=== PATIENT | female | born 1990 | race African-American/Black ===

== ENCOUNTER 2019-01-03 02:35 | Emergency (ER) | payer OTHER ==
[2019-01-03 03:18] LABS: Absolute Lymphocytes (CBC) 2.8 K/uL (0.7-4.9); Absolute Monocytes 0.5 K/uL (0.1-1.3); Absolute Neutrophil 5.3 K/uL (1.8-8.0); Basophils % 0.6 % (0-1.3); Eosinophils % 3.3 % (0-4.4); Hematocrit 36.6 % (36.0-45.0); Lymphocytes % 31.3 % (15.3-44.8); MPV 7.9 fL (7.6-11.3); Monocytes % 5.5 % (3.3-12.3); RBC Red Blood Cell Count 4.19 M/uL (3.86-4.86)
[2019-01-03] MEDS ORDERED: NA CHLORIDE 0.9% 1,000 ML ONE (03:29)
[2019-01-03 03:31] LABS: Urine Blood 3+ (NEG); Urine Glucose NEGATIVE (NEG); Urine Protein 1+ (NEG); Urine Specific Gravity >1.030 (1.005-1.030); Urine pH 5.5 (5.0-7.0)
[2019-01-03 03:47] LABS: BUN Blood Urea Nitrogen 14 mg/dL (7-18); Bicarbonate 26 mmol/L (21-32); Glucose Level 84 mg/dL (74-106); Potassium 3.7 mmol/L (3.5-5.1); Sodium Level 143 mmol/L (136-145)
[2019-01-03] MEDS ORDERED: MORPHINE 2 MG/ML SYR ONE ×2 (03:49→04:45)
[2019-01-03 03:50] LABS: HCG, Quantitative 1237 mIU/mL (1-3)
[2019-01-03] MEDS ORDERED: ONDANSETRON 4 MG/2 ML VIAL ONE (03:50)
--- NOTE | 2019-01-03 04:47 | ER ---
Nurse's Notes [facility] Name: Dinora Duckworth Age: 28 yrs Sex: Female : 1990 Arrival Date: 01/03/2019 Time: 02:36 Bed 14 Private MD: Diagnosis: Threatened Presentation: 01/03 02:45 Presenting complaint: Patient states: "lower abdominal pain with mild vaginal bleeding cc3 since 2230H last night". Transition of care: patient was not received from another setting of care. Onset of symptoms was January 02, 2019. Risk Assessment: Do you want to hurt yourself or someone else? Patient reports no desire to harm self or others. Initial Sepsis Screen: Does the patient meet any 2 criteria? No. Patient's initial sepsis screen is negative. Does the patient have a suspected source of infection? No. Patient's initial sepsis screen is negative. Care prior to arrival: None. 02:45 Method Of Arrival: Ambulatory cc3 02:45 Acuity: LONI 3 cc3 Triage Assessment: 02:45 General: Appears in no apparent distress. uncomfortable, Behavior is calm, cooperative, cc3 appropriate for age. Pain: Complains of pain in lower abdomen. EENT: No signs and/or symptoms were reported regarding the EENT system. Neuro: Level of Consciousness is awake, alert, obeys commands, Oriented to person, place, time, situation, Appropriate for age. Cardiovascular: Denies chest pain, Patient's skin is warm and dry. Respiratory: Airway is patent Respiratory effort is even, unlabored, Respiratory pattern is regular, symmetrical. GI: Abdomen is round. : Reports vaginal bleeding that is mild. Derm: Skin is intact, is healthy with good turgor, Skin is pink, warm \\T\\ dry. normal. Musculoskeletal: Circulation, motion, and sensation intact. Range of motion: intact in all extremities. 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 - Social history:: Smoking status: Patient/guardian denies using tobacco, never smoked. - Ebola Screening: : No symptoms or risks identified at this time. - Family history:: not pertinent. Screenin:45 Abuse screen: Denies threats or abuse. Denies injuries from another. Nutritional cc3 screening: No deficits noted. Tuberculosis screening: No symptoms or risk factors identified. Fall Risk Ambulatory Aid- None/Bed Rest/Nurse Assist (0 pts). Gait- Normal/Bed Rest/Wheelchair (0 pts) Mental Status- Oriented to own ability (0 pts). Assessment: 02:45 General: see triage assessment. cc3 03:18 Reassessment: Patient appears in no apparent distress at this time. Patient and/or cc3 family updated on plan of care and expected duration. Pain level reassessed. Patient is alert, oriented x 3, equal unlabored respirations, skin warm/dry/pink. 04:20 Reassessment: Patient appears in no apparent distress at this time. Patient and/or cc3 family updated on plan of care and expected duration. Pain level reassessed. Patient is alert, oriented x 3, equal unlabored respirations, skin warm/dry/pink. Ultrasound done bedside. 05:00 Reassessment: Patient appears in no apparent distress at this time. Patient and/or cc3 family updated on plan of care and expected duration. Pain level reassessed. Patient is alert, oriented x 3, equal unlabored respirations, skin warm/dry/pink. Dr. Velez discharged the patient home with prescription given. IV cannula removed and patient left ER vitally stable and ambulatory with her family. Patient denies pain at this time. Patient states feeling better. Patient states symptoms have improved. Vital Signs: 02:45 BP 128 / 88; Pulse 89; Resp 17 S; Temp 98(TE); Pulse Ox 100% on R/A; Weight 55.79 kg cc3 (R); Height 4 ft. 11 in. (149.86 cm) (R); 03:18 BP 125 / 87; Pulse 69; Resp 16 S; Pulse Ox 100% on R/A; cc3 04:30 BP 119 / 82; Pulse 66; Resp 17 S; Pulse Ox 100% on R/A; Pain 4/10; cc3 05:00 BP 121 / 79; Pulse 65; Resp 16 S; Pulse Ox 100% on R/A; cc3 02:45 Body Mass Index 24.84 (55.79 kg, 149.86 cm) cc3 ED Course: 02:36 Patient arrived in ED. ds1 02:43 Tonia Maria is Primary Nurse. cc3 02:45 Arm band placed on right wrist. Patient notified of wait time. cc3 02:45 Patient has correct armband on for positive identification. Placed in gown. Bed in low cc3 position. Side rails up X 1. Pulse ox on. NIBP on. 02:47 Shashank Velez MD is Attending Physician. kevin 03:07 Triage completed. cc3 03:14 Inserted saline lock: 20 gauge in right antecubital area, using aseptic technique. mt Blood collected. 04:26 Ultrasound completed. Patient tolerated well. Notified ED Physician alisha. sg3 04:27 US Transvaginal Ob In Process Unspecified. EDMS 04:46 Blu Camacho MD is Referral Physician. [facility] 05:00 No provider procedures requiring assistance completed. IV discontinued, intact, cc3 bleeding controlled, No redness/swelling at site. Pressure dressing applied. Administered Medications: 03:15 Drug: NS 0.9% 1000 ml Route: IV; Rate: 1 bolus; Site: right antecubital; cc3 04:15 Follow up: Response: No adverse reaction; IV Status: Completed infusion; IV Intake: cc3 1000ml 03:40 Drug: morphine 2 mg Route: IVP; Site: right antecubital; cc3 04:00 Follow up: Response: No adverse reaction; Pain is decreased cc3 03:45 Drug: Zofran 4 mg Route: IVP; Site: right antecubital; cc3 04:00 Follow up: Response: No adverse reaction; Nausea is decreased cc3 04:30 Drug: morphine 2 mg Route: IVP; Site: right antecubital; cc3 05:00 Follow up: Response: No adverse reaction; Pain is decreased cc3 Intake: 04:15 IV: 1000ml; Total: 1000ml. cc3 Outcome: 04:46 Discharge ordered by . [facility] 05:00 Discharged to home ambulatory, with family. cc3 05:00 Condition: stable 05:00 Discharge instructions given to patient, Instructed on discharge instructions, follow up and referral plans. medication usage, Demonstrated understanding of instructions, follow-up care, medications, Prescriptions given X 1. 05:12 Patient left the ED. cc3 Signatures: Dispatcher [employer] EDShashank Gerardo MD MD cha [place], [place] ds1 Kair Lee mt, Aurea gil3 Tonia Maria cc3 Corrections: (The following items were deleted from the chart) 04:36 04:30 Pulse 66bpm; Resp 17bpm; Spontaneous; Pulse Ox 100% RA; Pain 10/28; cc3 cc3
--- NOTE | 2019-01-03 04:47 | EDPHYS ---
Physician Documentation [facility] Name: Dinora Duckworth Age: 28 yrs Sex: Female : 1990 Arrival Date: 01/03/2019 Time: 02:36 Bed 14 Private MD: ASHOK Physician Shashank Velez HPI: 01/03 03:14 This 28 yrs old Black Female presents to ER via Ambulatory with complaints of Vaginal kevin Bleeding, Vaginal Pain, Preg. 03:14 The patient presents with vaginal bleeding that is light. Onset: The symptoms/episode kevin began/occurred yesterday. Modifying factors: The symptoms are alleviated by nothing, the symptoms are aggravated by nothing. Associated signs and symptoms: The patient has no apparent associated signs or symptoms. Severity of symptoms: At their worst the symptoms were mild. The patient is sexually active, reportedly has a single partner. The patient has not experienced similar symptoms in the past. 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 - Social history:: Smoking status: Patient/guardian denies using tobacco, never smoked. - Ebola Screening: : No symptoms or risks identified at this time. - Family history:: not pertinent. ROS: 03:14 Constitutional: Negative for fever, chills, and weight loss, Eyes: Negative for injury, kevin pain, redness, and discharge, ENT: Negative for injury, pain, and discharge, Neck: Negative for injury, pain, and swelling, Cardiovascular: Negative for chest pain, palpitations, and edema, Respiratory: Negative for shortness of breath, cough, wheezing, and pleuritic chest pain, Back: Negative for injury and pain, MS/Extremity: Negative for injury and deformity, Skin: Negative for injury, rash, and discoloration, Neuro: Negative for headache, weakness, numbness, tingling, and seizure, Psych: Negative for depression, anxiety, suicide ideation, homicidal ideation, and hallucinations, Allergy/Immunology: Negative for hives, rash, and allergies, Endocrine: Negative for neck swelling, polydipsia, polyuria, polyphagia, and marked weight changes, Hematologic/Lymphatic: Negative for swollen nodes, abnormal bleeding, and unusual bruising. 03:14 Abdomen/GI: Positive for abdominal pain, of the suprapubic area, right lower quadrant and left lower quadrant. 03:14 : Positive for vaginal bleeding. Exam: 03:14 Constitutional: This is a well developed, well nourished patient who is awake, alert, kevin and in no acute distress. Head/Face: Normocephalic, atraumatic. Eyes: Pupils equal round and reactive to light, extra-ocular motions intact. Lids and lashes normal. Conjunctiva and sclera are non-icteric and not injected. Cornea within normal limits. Periorbital areas with no swelling, redness, or edema. ENT: Nares patent. No nasal discharge, no septal abnormalities noted. Tympanic membranes are normal and external auditory canals are clear. Oropharynx with no redness, swelling, or masses, exudates, or evidence of obstruction, uvula midline. Mucous membranes moist. Neck: Trachea midline, no thyromegaly or masses palpated, and no cervical lymphadenopathy. Supple, full range of motion without nuchal rigidity, or vertebral point tenderness. No Meningismus. Chest/axilla: Normal chest wall appearance and motion. Nontender with no deformity. No lesions are appreciated. Cardiovascular: Regular rate and rhythm with a normal S1 and S2. No gallops, murmurs, or rubs. Normal PMI, no JVD. No pulse deficits. Respiratory: Lungs have equal breath sounds bilaterally, clear to auscultation and percussion. No rales, rhonchi or wheezes noted. No increased work of breathing, no retractions or nasal flaring. Back: No spinal tenderness. No costovertebral tenderness. Full range of motion. Skin: Warm, dry with normal turgor. Normal color with no rashes, no lesions, and no evidence of cellulitis. MS/ Extremity: Pulses equal, no cyanosis. Neurovascular intact. Full, normal range of motion. Neuro: Awake and alert, GCS 15, oriented to person, place, time, and situation. Cranial nerves II-XII grossly intact. Motor strength 5/5 in all extremities. Sensory grossly intact. Cerebellar exam normal. Normal gait. Psych: Awake, alert, with orientation to person, place and time. Behavior, mood, and affect are within normal limits. 03:14 Abdomen/GI: Inspection: abdomen appears normal, Bowel sounds: normal, Palpation: mild abdominal tenderness, in the suprapubic area, Liver: no appreciated palpable abnormalities, Hernia: not appreciated. Vital Signs: 02:45 BP 128 / 88; Pulse 89; Resp 17 S; Temp 98(TE); Pulse Ox 100% on R/A; Weight 55.79 kg cc3 (R); Height 4 ft. 11 in. (149.86 cm) (R); 03:18 BP 125 / 87; Pulse 69; Resp 16 S; Pulse Ox 100% on R/A; cc3 04:30 BP 119 / 82; Pulse 66; Resp 17 S; Pulse Ox 100% on R/A; Pain 4/10; cc3 05:00 BP 121 / 79; Pulse 65; Resp 16 S; Pulse Ox 100% on R/A; cc3 02:45 Body Mass Index 24.84 (55.79 kg, 149.86 cm) cc3 MDM: 02:47 Patient medically screened. [facility] 03:16 Data reviewed: vital signs, nurses notes, lab test result(s), radiologic studies, kevin ultrasound. 01/03 02:59 Order name: Quantitative Hcg; Complete Time: 04:46 [facility] 01/03 02:59 Order name: Abo/rh Typing; Complete Time: 04:46 [facility] 01/03 02:59 Order name: Basic Metabolic Panel; Complete Time: 04:46 [facility] 01/03 02:59 Order name: CBC with Diff; Complete Time: 03:26 [facility] 01/03 03:13 Order name: Urine Dipstick--Ancillary (enter results); Complete Time: 04:46 [facility] 01/03 03:13 Order name: Urine --Ancillary (enter results); Complete Time: 04:46 [facility] 01/03 02:59 Order name: Urine Test (obtain specimen); Complete Time: 03:06 [facility] 01/03 02:59 Order name: IV Saline Lock; Complete Time: 03:18 [facility] 01/03 02:59 Order name: Labs collected and sent; Complete Time: 03:18 [facility] 01/03 02:59 Order name: US Transvaginal Ob [facility] 01/03 02:59 Order name: NPO; Complete Time: 03:18 [facility] 01/03 02:59 Order name: Urine Dipstick-Ancillary (obtain specimen); Complete Time: 03:06 [facility] Administered Medications: 03:15 Drug: NS 0.9% 1000 ml Route: IV; Rate: 1 bolus; Site: right antecubital; cc3 04:15 Follow up: Response: No adverse reaction; IV Status: Completed infusion; IV Intake: cc3 1000ml 03:40 Drug: morphine 2 mg Route: IVP; Site: right antecubital; cc3 04:00 Follow up: Response: No adverse reaction; Pain is decreased cc3 03:45 Drug: Zofran 4 mg Route: IVP; Site: right antecubital; cc3 04:00 Follow up: Response: No adverse reaction; Nausea is decreased cc3 04:30 Drug: morphine 2 mg Route: IVP; Site: right antecubital; cc3 05:00 Follow up: Response: No adverse reaction; Pain is decreased cc3 Disposition: 01/03/19 04:46 Discharged to Home. Impression: Threatened . - Condition is Stable. - Discharge Instructions: Threatened Miscarriage, Vaginal Bleeding During , First Trimester, First Trimester of , [id number], First Trimester of , Threatened Miscarriage, [id number], Pelvic Rest. - Prescriptions for Vitamin 27- 0.8 mg Oral Tablet - take 1 tablet by ORAL route once daily; 30 tablet. - Medication Reconciliation Form, Thank You Letter, Antibiotic Education, Prescription Opioid Use form. - Follow up: Private Physician; When: 2 - 3 days; Reason: Recheck today's complaints, Continuance of care, Re-evaluation by your physician. Follow up: Blu Camacho; When: 2 - 3 days; Reason: Recheck today's complaints, Re-evaluation by your physician. - Problem is new. - Symptoms have improved. Signatures: Dispatcher [employer] Shashank Cespedes MD MD cha Cordel, Charlene cc3 Corrections: (The following items were deleted from the chart) 05:12 04:46 01/03/2019 04:46 Discharged to Home. Impression: Threatened . Condition cc3 is Stable. Discharge Instructions: Threatened Miscarriage, Vaginal Bleeding During , First Trimester, First Trimester of , Vsnc-xl-Uswe, First Trimester of , Threatened Miscarriage, [id number]-[id number]-Tede, Pelvic Rest. Prescriptions for Vitamin 27-0.8 mg Oral Tablet - take 1 tablet by ORAL route once daily; 30 tablet. and Forms are Medication Reconciliation Form, Thank You Letter, Antibiotic Education, Prescription Opioid Use. Follow up: Private Physician; When: 2 - 3 days; Reason: Recheck today's complaints, Continuance of care, Re-evaluation by your physician. Follow up: Blu Camacho; When: 2 - 3 days; Reason: Recheck today's complaints, Re-evaluation by your physician. Problem is new. Symptoms have improved. kevin
--- NOTE | 2019-01-03 08:56 | RAD REPORT ---
EXAM DESCRIPTION: US - Transvaginal OB - 01/03/2019 4:25 am CLINICAL HISTORY: with abdominal pain and vaginal bleeding COMPARISON: None. FINDINGS: The uterus 10 x 5 x 5 centimeters. The endometrial stripe measures 6 millimeters. A gesta tional sac is not seen. Ovaries are normal in size and echotexture.. An adnexal mass is not noted. No significant free fluid IMPRESSION: Nonvisualization of a gestational sac within the endometrium These findings could represent an early intrauterine in which the gestational sac is not se en. and even an ectopic can also result in this appearance. This all should be cor related clinically and with serial beta HCG levels. Followup endovaginal sonogram in 1 week recommend ed
== END 2019-01-03 05:12 | disposition home or self-care (01) ==
LOC: ER 02:35
DX: O20.0 Threatened abortion (principal); Z3A.01 Less than 8 weeks gestation of pregnancy
CPT/HCPCS: 36415; 76817; 80048; 81003; 81025; 84702; 85025; 86900; 86901; 96361; 96374; 96375; 99284; J2270; J2405; J7030

== ENCOUNTER 2019-01-30 20:09 | Emergency (ER) | payer OTHER ==
--- OUTSIDE RECORDS SUMMARY | 2019-01-30 20:12 | XMS REPORT ---
:1990 [facility] [address] [place] [address] [address] [place] [address] Care Team Providers Name Role Phone Unavailable Unavailable Unavailable Problems This patient has no known problems. Allergies, Adverse Reactions, Alerts This patient has no known allergies or adverse reactions. Medications This patient has no known medications.
--- NOTE | 2019-01-30 20:45 | EDPHYS ---
Physician Documentation [facility] Name: Dinora Duckworth Age: 28 yrs Sex: Female : 1990 Arrival Date: 01/30/2019 Time: 20:14 Bed 12 Private MD: None, None ED Physician Bebeto Benavides HPI: 01/30 20:40 This 28 yrs old Black Female presents to ER via Ambulatory with complaints of Toothache.cp 20:40 The patient presents with broken tooth/teeth, pain, swelling. The problem is located in cp the right upper tooth. Onset: The symptoms/episode began/occurred 4 week(s) ago, and became worse 2 week(s) ago. 20:40 Duration: The symptoms are intermittent. Modifying factors: the symptoms are aggravated cp by chewing. Associated signs and symptoms: Pertinent negatives: fever, inability to eat, vomiting, facial swelling. Severity of symptoms: in the emergency department the symptoms are unchanged, despite home interventions. 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 - Social history:: Smoking status: Patient/guardian denies using tobacco. - Ebola Screening: : No symptoms or risks identified at this time. ROS: 20:40 Constitutional: Negative for body aches, chills, fever, poor PO intake. cp 20:40 ENT: Positive for dental pain, Negative for ear pain, sore throat, difficulty swallowing, difficulty handling secretions. 20:40 All other systems are negative. Exam: 20:40 Head/Face: Normocephalic, atraumatic. cp 20:40 Constitutional: The patient appears in no acute distress, alert, awake, comfortable, non-toxic, well developed, well nourished. 20:40 Eyes: Periorbital structures: appear normal, Conjunctiva: normal, no exudate, no injection, Sclera: no appreciated abnormality, Lids and lashes: appear normal, bilaterally. 20:40 ENT: External ear(s): are unremarkable, Nose: is normal, Mouth: Lips: moist, Oral mucosa: pink and intact, moist, Gums: swollen, on the right upper outer gumline, Tongue: is normal, abscess, is not appreciated, Dental exam: abscess, is not appreciated, dental caries, that is mild, diffusely, fractured teeth are noted, specifically the upper right second bicuspid (#4), pain, that is mild, specifically in the upper right second bicuspid (#4), Voice: is normal. 20:40 Neck: ROM/movement: is normal, is supple, without pain, no range of motions limitations, no nuchal rigidity. 20:40 Chest/axilla: Inspection: normal. cp 20:40 Cardiovascular: Rate: normal. cp 20:40 Respiratory: the patient does not display signs of respiratory distress, Respirations: normal, no use of accessory muscles, no retractions, no splinting, no tachypnea. 20:40 Skin: no rash present. Vital Signs: 20:18 BP 126 / 74; Pulse 77; Resp 16; Temp 97.5; Pulse Ox 98% on R/A; Weight 55.79 kg; Height la1 4 ft. 11 in. (149.86 cm); 20:18 Body Mass Index 24.84 (55.79 kg, 149.86 cm) la1 MDM: 20:35 Patient medically screened. cp 20:45 Data reviewed: vital signs, nurses notes, and as a result, I will discharge patient. cp 20:45 Differential diagnosis: dental caries, dental abscess, pericoronitis. Counseling: I had cp a detailed discussion with the patient and/or guardian regarding: the historical points, exam findings, and any diagnostic results supporting the discharge/admit diagnosis, the need for outpatient follow up, for definitive care, a dentist, to return to the emergency department if symptoms worsen or persist or if there are any questions or concerns that arise at home. Administered Medications: No medications were administered Disposition: 21:00 Chart complete. cp 01/31 01:32 Co-signature as Attending Physician, Bebeto Benavides MD. Disposition: 01/30/19 20:45 Discharged to Home. Impression: Jaw pain - right upper. - Condition is Stable. - Discharge Instructions: Dental Pain. - Prescriptions for Amoxicillin 875 mg Oral Tablet - take 1 tablet by ORAL route every 12 hours for 10 days; 20 tablet. Ibuprofen 800 mg Oral Tablet - take 1 tablet by ORAL route every 8 hours As needed take with food; 30 tablet. - Medication Reconciliation Form, Thank You Letter, Antibiotic Education, Prescription Opioid Use form. - Follow up: Private Physician; When: 2 - 3 days; Reason: Recheck today's complaints. - Problem is an ongoing problem. - Symptoms are unchanged. Signatures: Elaine Baker RN RN aa1 Jose Juan Stroud RN RN la1 Shashank Robison PA PA cp Starr, Gregory, MD MD gs Corrections: (The following items were deleted from the chart) 01/30 20:51 20:45 01/30/2019 20:45 Discharged to Home. Impression: Jaw pain - right upper. aa1 Condition is Stable. Forms are Medication Reconciliation Form, Thank You Letter, Antibiotic Education, Prescription Opioid Use. Follow up: Private Physician; When: 2 - 3 days; Reason: Recheck today's complaints. Problem is an ongoing problem. Symptoms are unchanged. cp
--- NOTE | 2019-01-30 20:45 | ER ---
Nurse's Notes [facility] Name: Dinora Duckworth Age: 28 yrs Sex: Female : 1990 Arrival Date: 01/30/2019 Time: 20:14 Bed 12 Private MD: None, None Diagnosis: Jaw pain-right upper Presentation: 01/30 20:16 Presenting complaint: Patient states: Right upper dental pain for about 2 weeks, I went la1 to the dentist about that time and they said I couldn't get anything done till the infection went down but they never gave me any anitbiotics so I figured I would come here to see if I could get some. Transition of care: patient was not received from another setting of care. Onset of symptoms was January 30, 2019. Risk Assessment: Do you want to hurt yourself or someone else? Patient reports no desire to harm self or others. Initial Sepsis Screen: Does the patient meet any 2 criteria? No. Patient's initial sepsis screen is negative. Does the patient have a suspected source of infection? No. Patient's initial sepsis screen is negative. Care prior to arrival: None. 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 - Social history:: Smoking status: Patient/guardian denies using tobacco. - Ebola Screening: : No symptoms or risks identified at this time. Screenin:19 Abuse screen: Denies threats or abuse. Nutritional screening: No deficits noted. la1 Tuberculosis screening: No symptoms or risk factors identified. Fall Risk None identified. Assessment: 20:19 General: Appears in no apparent distress. Behavior is calm, cooperative. Pain: la1 Complains of pain in gums. Neuro: Level of Consciousness is awake, alert, obeys commands, Oriented to person, place, time, situation. Cardiovascular: Capillary refill < 3 seconds Patient's skin is warm and dry. EENT: Poor dentition noted. 20:50 Reassessment: Patient appears in no apparent distress at this time. Patient is alert, aa1 oriented x 3, equal unlabored respirations, skin warm/dry/pink. Discussed d/c \T\ f/u instructions to pt; denies questions or concerns at this time. Amb to lobby with steady gait. Vital Signs: 20:18 BP 126 / 74; Pulse 77; Resp 16; Temp 97.5; Pulse Ox 98% on R/A; Weight 55.79 kg; Height la1 4 ft. 11 in. (149.86 cm); 20:18 Body Mass Index 24.84 (55.79 kg, 149.86 cm) la1 ED Course: 20:14 Patient arrived in ED. mr 20:14 None, None is Private Physician. mr 20:18 Triage completed. la1 20:19 Arm band placed on left wrist. la1 20:19 Call light in reach. la1 20:21 Shashank Robison PA is PHCP. cp 20:21 Bebeto Benavides MD is Attending Physician. cp 20:50 Elaine Baker, RN is Primary Nurse. aa1 20:50 No provider procedures requiring assistance completed. Patient did not have IV access aa1 during this emergency room visit. Administered Medications: No medications were administered Outcome: 20:45 Discharge ordered by . cp 20:50 Discharged to home ambulatory. aa1 20:50 Condition: good 20:50 Discharge instructions given to patient, Instructed on discharge instructions, follow up and referral plans. medication usage, Demonstrated understanding of instructions, follow-up care, medications, Prescriptions given X 2. 20:51 Patient left the ED. aa1 Signatures: Elaine Baker RN RN aa1 Odessa Bhagat Jose Juan Figueroa RN RN la1 Shashank Robison PA PA cp
== END 2019-01-30 20:51 | disposition home or self-care (01) ==
LOC: ER 20:09
DX: R68.84 Jaw pain (principal)
CPT/HCPCS: 99282

== ENCOUNTER 2019-03-07 18:37 | Emergency (ER) | payer OTHER ==
--- OUTSIDE RECORDS SUMMARY | 2019-03-07 18:39 | XMS REPORT ---
:1990 [facility] [address] [place] [address] [address] [place] [address] Care Team Providers Name Role Phone Unavailable Unavailable Unavailable Problems This patient has no known problems. Allergies, Adverse Reactions, Alerts This patient has no known allergies or adverse reactions. Medications This patient has no known medications.
--- NOTE | 2019-03-07 18:58 | EDPHYS ---
Physician Documentation [facility] Name: Dinora Duckworth Age: 28 yrs Sex: Female : 1990 Arrival Date: 03/07/2019 Time: 18:39 Bed 17 Private MD: ED Physician Bebeto Benavides HPI: 03/07 18:56 This 28 yrs old Black Female presents to ER via Ambulatory with complaints of Skin pm1 Problem. 18:56 The patient's rash thought to be caused by knots under the skin in the right groin area pm1 that come and go for the past two months. Associated signs and symptoms: Pertinent negatives: None. fever, nausea, vomiting, abdominal pain, right leg pain, urinary symptoms. Treatment given at home: None. The patient has not recently seen a physician. 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 - Social history:: Smoking status: . - Ebola Screening: : Patient denies travel to an Ebola-affected area in the 21 days before illness onset. ROS: 18:56 Constitutional: Negative for fever, chills, and weight loss, Eyes: Negative for injury, pm1 pain, redness, and discharge, ENT: Negative for injury, pain, and discharge, Neck: Negative for injury, pain, and swelling, Cardiovascular: Negative for chest pain, palpitations, and edema, Respiratory: Negative for shortness of breath, cough, wheezing, and pleuritic chest pain, Abdomen/GI: Negative for abdominal pain, nausea, vomiting, diarrhea, and constipation, Back: Negative for injury and pain, MS/Extremity: Negative for injury and deformity. 18:56 Neuro: Negative for headache, weakness, numbness, tingling, and seizure. 18:56 Skin: Positive for of the right groin area, knots/bumps. Exam: 18:56 Constitutional: This is a well developed, well nourished patient who is awake, alert, pm1 and in no acute distress. Head/Face: Normocephalic, atraumatic. Neck: Trachea midline, no thyromegaly or masses palpated, and no cervical lymphadenopathy. Supple, full range of motion without nuchal rigidity, or vertebral point tenderness. No Meningismus. Chest/axilla: Normal chest wall appearance and motion. Nontender with no deformity. No lesions are appreciated. Cardiovascular: Regular rate and rhythm with a normal S1 and S2. No gallops, murmurs, or rubs. Normal PMI, no JVD. No pulse deficits. Respiratory: Lungs have equal breath sounds bilaterally, clear to auscultation and percussion. No rales, rhonchi or wheezes noted. No increased work of breathing, no retractions or nasal flaring. Abdomen/GI: Soft, non-tender, with normal bowel sounds. No distension or tympany. No guarding or rebound. No evidence of tenderness throughout. Back: No spinal tenderness. No costovertebral tenderness. Full range of motion. Skin: Warm, dry with normal turgor. Normal color with no rashes, no lesions, and no evidence of cellulitis. MS/ Extremity: Pulses equal, no cyanosis. Neurovascular intact. Full, normal range of motion. 18:56 Abdomen/GI: Palpation: right groin area are two small mobile lymph nodes, turnaround planner: Rachael COBOS. 18:56 Neuro: Orientation: is normal, Motor: is normal, moves all fours, Sensation: is normal, no obvious gross deficits. Vital Signs: 18:42 BP 121 / 80; Pulse 73; Resp 16; Temp 98.5(TE); Pulse Ox 100% on R/A; Weight 55.79 kg tw2 (R); Height 4 ft. 11 in. (149.86 cm); Pain 5/10; 18:42 Body Mass Index 24.84 (55.79 kg, 149.86 cm) tw2 MDM: 18:55 Patient medically screened. pm1 18:56 Data reviewed: vital signs. Data interpreted: Pulse oximetry: on room air is 100 %. pm1 Interpretation: normal. Counseling: I had a detailed discussion with the patient and/or guardian regarding: the historical points, exam findings, and any diagnostic results supporting the discharge/admit diagnosis, the need for outpatient follow up, a family practitioner, to return to the emergency department if symptoms worsen or persist or if there are any questions or concerns that arise at home. Administered Medications: No medications were administered Disposition: 03/07/19 18:57 Discharged to Home. Impression: Nonspecific lymphadenitis. - Condition is Stable. - Discharge Instructions: Lymphadenopathy. - Prescriptions for Keflex 500 mg Oral Capsule - take 1 capsule by ORAL route every 6 hours for 10 days; 40 capsule. - Medication Reconciliation Form, Thank You Letter, Antibiotic Education, Prescription Opioid Use form. - Follow up: Emergency Department; When: As needed; Reason: Worsening of condition. Follow up: Private Physician; When: 2 - 3 days; Reason: Recheck today's complaints, Continuance of care, Re-evaluation by your physician. - Problem is new. - Symptoms have improved. Addendum: 03/09/2019 15:39 Co-signature as Attending Physician, Bebeto Benavides MD. g s Signatures: Tim Petersen, MILKING MACHINE MECHANIC MILKING MACHINE MECHANIC pm1 Chloe Paniagua RN RN tw2 Bebeto Benavides MD MD gs AcRachael tavares RN RN ca1 Corrections: (The following items were deleted from the chart) 03/07 19:05 18:57 03/07/2019 18:57 Discharged to Home. Impression: Nonspecific lymphadenitis. ca1 Condition is Stable. Forms are Medication Reconciliation Form, Thank You Letter, Antibiotic Education, Prescription Opioid Use. Follow up: Emergency Department; When: As needed; Reason: Worsening of condition. Follow up: Private Physician; When: 2 - 3 days; Reason: Recheck today's complaints, Continuance of care, Re-evaluation by your physician. Problem is new. Symptoms have improved. pm1
--- NOTE | 2019-03-07 18:58 | ER ---
Nurse's Notes [facility] Name: Dinora Duckworth Age: 28 yrs Sex: Female : 1990 Arrival Date: 03/07/2019 Time: 18:39 Bed 17 Private MD: Diagnosis: Nonspecific lymphadenitis Presentation: 03/07 18:40 Presenting complaint: Patient states: i have knots under my skin in the crease where my tw2 panties are, there are two or three of them, they come and go away. Transition of care: patient was not received from another setting of care. Onset of symptoms was March 07, 2019. Risk Assessment: Do you want to hurt yourself or someone else? Patient reports no desire to harm self or others. Initial Sepsis Screen: Does the patient meet any 2 criteria? No. Patient's initial sepsis screen is negative. Does the patient have a suspected source of infection? No. Patient's initial sepsis screen is negative. Care prior to arrival: None. 18:40 Method Of Arrival: Ambulatory tw2 18:40 Acuity: LONI 4 tw2 Triage Assessment: 18:43 General: Appears in no apparent distress. slender, Behavior is calm, cooperative, tw2 appropriate for age. Pain: Complains of pain in right inner thigh. 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 - Social history:: Smoking status: . - Ebola Screening: : Patient denies travel to an Ebola-affected area in the 21 days before illness onset. Screenin:46 Abuse screen: Denies threats or abuse. Nutritional screening: No deficits noted. tw2 Tuberculosis screening: No symptoms or risk factors identified. Fall Risk None identified. Assessment: 18:50 General: Appears in no apparent distress. comfortable, Behavior is calm, cooperative, ca1 appropriate for age. Pain: Denies pain. Neuro: Level of Consciousness is awake, alert, obeys commands, Oriented to person, place, time, situation. Cardiovascular: Heart tones S1 S2 present Capillary refill < 3 seconds Patient's skin is warm and dry. Respiratory: Airway is patent Respiratory effort is even, unlabored, Respiratory pattern is regular, symmetrical, Breath sounds are clear bilaterally. GI: Abdomen is flat, non-distended, Bowel sounds present X 4 quads. Abd is soft and non tender X 4 quads. : Genitalia appear normal sebaceous bumb at L inner labia beside the clitoris. EENT: No deficits noted. No signs and/or symptoms were reported regarding the EENT system. Derm: Skin is intact, is healthy with good turgor, Skin is pink, warm \T\ dry. Right groin has bumps that seems to be inflammation of the lymph nodes. Non-tender, no redness noted. Musculoskeletal: Circulation, motion, and sensation intact. Capillary refill < 3 seconds, Range of motion: intact in all extremities. Vital Signs: 18:42 BP 121 / 80; Pulse 73; Resp 16; Temp 98.5(TE); Pulse Ox 100% on R/A; Weight 55.79 kg tw2 (R); Height 4 ft. 11 in. (149.86 cm); Pain 5/10; 18:42 Body Mass Index 24.84 (55.79 kg, 149.86 cm) tw2 ED Course: 18:39 Patient arrived in ED. as 18:42 Triage completed. tw2 18:42 Arm band placed on. tw2 18:45 Rachael William RN is Primary Nurse. ca1 18:45 Tim Petersen NP is PHCP. pm1 18:45 Bebeto Benavides MD is Attending Physician. pm1 18:46 Placed in gown. Bed in low position. Call light in reach. tw2 18:50 No provider procedures requiring assistance completed. Patient did not have IV access ca1 during this emergency room visit. Administered Medications: No medications were administered Outcome: 18:57 Discharge ordered by . pm1 19:05 Discharged to home ambulatory. ca1 19:05 Condition: stable 19:05 Discharge instructions given to patient, Instructed on discharge instructions, follow up and referral plans. medication usage, Demonstrated understanding of instructions, follow-up care, medications, Prescriptions given X 1. 19:05 Patient left the ED. ca1 Signatures: Columba Hernandez Patrick, NP BENDING ROLL HAND pm1 Chloe Paniagua RN RN tw2 Acob, Rachael, RN RN ca1
== END 2019-03-07 19:05 | disposition home or self-care (01) ==
LOC: ER 18:37
DX: I88.9 Nonspecific lymphadenitis, unspecified (principal)